=== PATIENT | female | born 1945 | race African-American/Black ===

== ENCOUNTER 2025-07-30 12:42 | Emergency (ER) | payer OTHER, MEDICAID ==
[~2025-07-30] VITALS: Ht 144.8 cm; Wt 54.3 kg
[2025-07-30 12:44] VITALS: BP 128/70; PULSE 16; RESP 16; TEMP 97.5; O2SAT 100
[2025-07-30] MEDS: HYDROcodone-ACET 5/325MG TAB PO ONE (13:48)
--- NOTE | 2025-07-30 13:49 | ED.PDOC ---
Back pain HPI HPI Comments 80-year-old female who presents to the ED with a chief complaint of chronic back pain. Patient states he has been having chronic back pain for the past one year. Patient states the pain is located to the mid to lower back, constant nonradiating rating the pain is rated moderate to severe with no associated exacerbating or relieving factors. Patient denies any recent injury fall or trauma. Patient states she does take Milil[place] and OTC Tylenol but states it has not been helping. Patient otherwise has stable vitals in the ED. Patient denies any other symptoms. Chief Complaint: Back Pain Time Seen by MD: 13:43 Reviewed Notes: Medications, Allergies Allergies: Coded Allergies: NO KNOWN ALLERGIES (Unverified , 07/30/25) Home Meds Active Scripts Acetaminophen (Acetaminophen) 325 Mg Tab, 325 MG PO Q6HP PRN for 10 Days, #40 TAB 0 Refills Prov:ANGIE JONES NP 07/30/25 Methylprednisolone (Medrol Dosepak) 4 Mg Ever, 4 MG PO UD for 7 Days, #21 TAB 0 R efills UAD Prov:ANGIE JONES FIRE EATER 07/30/25 Information Source: Patient, Friend Mode of Arrival: Wheelchair Brought in by: Friend Timing: Months Location of Back pain: (R) Lower back, (L) Lower back, (R) Lumbar, (L) Lumbar Past Medical History PAST MEDICAL HISTORY: Denies Past Medical History (Other): Chronic back pain Surgical History: Denies all surgeries PARKING RAMP ATTENDANT History: Denies all PARKING RAMP ATTENDANT Hx Family History Family History: Reviewed,noncontributory to illness Social History Smoker: Non-Smoker Alcohol: Denies ETOH Use Drugs: Denies Drug Use Lives In: Home Constitutional: denies: chills, diaphoresis, fatigue, fever, malaise, sweats, weakness, others EENTM: denies: blurred vision, double vision, ear bleeding, ear discharge, ear drainage, ear pain, ear ringing, eye pain, eye redness, hearing loss, mouth pain, mouth swelling, nasal discharge, nose bleeding, nose congestion, nose pain, photophobia, tearing, throat pain, throat swelling, voice changes, others Respiratory: denies: cough, hemoptysis, orthopnea, SOB at rest, shortness of breath, SOB with excertion, stridor, wheezing, others Cardiovascular: denies: chest pain, dizzy spells, diaphoresis, Dyspnea on exertion, edema, irregular heart beat, left arm pain, lightheadedness, palpitations, PND, syncope, others Gastrointestinal: denies: abdomen distended, abdominal pain, blood streaked bowels, constipated, diarrhea, dysphagia, difficulty swallowing, hematemesis, melena, nausea, poor appetite, poor fluid intake, rectal bleeding, rectal pain, vomiting, others Genitourinary: denies: abnormal vagina bleeding, burning, dyspareunia, dysuria, flank pain, frequency, hematuria, incontinence, pain, , vagina discharge, urgency, others Neurological: denies: dizziness, fainting, headache, left sided numbness, left sided weakness, numbness, paresthesia, pre-existing deficit, right sided numbness, right sided weakness, seizure, speech problems, tingling, tremors, w eakness, others Musculoskeletal: reports: back pain; denies: gout, joint pain, joint swelling, muscle pain, muscle stiffness, neck pain, others Integumetry: denies: bruises, change in color, change in hair/nails, dryness, laceration, lesions, lumps, rash, wounds, others Allergic/Immunocompromised: denies: Difficulty Healing, Frequent Infections, Hives, Itching, others Hematologic/Lymphatic: denies: anemia, blood clots, easy bleeding, easy bruising, swollen glands, others Endocrine: denies: excessive hunger, excessive sweating, excessive thirst, excessive urination, flushing, intolerance to cold, intolerance to heat, unexplained weight gain, unexplained weight loss, others Psychiatric: denies: anxiety, bipolar disorder, depression, hopeless, panic disorder, schizophrenia, sleepless, suicidal, others All Other Systems: Reviewed and Negative Physical Exam General Appearance: No Apparent Distress, Normal HEENT: Normal ENT Inspection, Pharynx Normal, TMs Normal Neck: Full Range of Motion, Non-Tender, Normal, Normal Inspection Respiratory: Chest Non-Tender, Lungs Clear, No Accessory Muscle Use, No Respiratory Distress, Normal Breath Sounds Cardiovascular: No Edema, No JVD, No Murmur, No Gallop, Normal Peripheral Pulses, Regular Rate/Rhythm Breast Exam: Deferred Gastrointestinal: No Organomegaly, Non Tender, No Pulsatile Mass, Normal Bowel Sounds, Soft Genitalia: Deferred Pelvic: Deferred Rectal: Deferred Extremities: Other (TTP TO LUMBAR SPINE, NO STEP-OFFS NEUROVASCULARLY INTACT) Musculoskeletal : Apperance: Normal Neurologic: Alert, site planner II-XII nml as Tested, No Motor Deficits, Normal Affect, Normal Mood, No Sensory Deficits Cerebellar Function: Normal Reflexes: Normal Skin: Dry, Normal Color, Warm Lymphatic: No Adenopathy Was a procedure done? Was a procedure done?: No Back Pain Differential Dx Differential Diagnosis: DJD, Musculoskeletal Pain Other Differential Diagnosis Chronic back pain, DDD, lumbar radiculopathy, X-Ray, Labs, Meds, VS Vital Signs Date Time Temp Pulse Resp B/P (MAP) Pulse Ox O2 Delivery O2 Flow Rate FiO2 07/30/25 12:44 97.5 16 16 128/70 100 97.5 X-Ray, Labs, Meds, VS Comment Patient arrives alert and oriented, ABC's intact, afebrile, vital signs stable, saturating well in room air Diagnostic imaging ordered by me and results interpreted by radiology : Lumbar spine x-ray Patient was given Mililani 5/325 1 tab p.o.. Tolerated medications with no adverse reaction. I considered cauda equina, spinal cord compression, vertebral malignancy/mets, acute spinal fracture, vertebral osteomyelitis, epidural abscess, infected or obstructed kidney stone, however this is less likely as the patient does not present with lower back pain red flags symptoms such as bowel or bladder dysfunction, saddle anesthesia, paresthesia, and without any history of malignancy or recent back trauma or spinal interventions. Therefore further imaging studies such as a lumbar MRI were not indicated on today's visit. Presentation most consistent with nonemergent musculoskeletal etiology versus nonemergent disc herniation. ED workup: Defer imaging and lab work for outpatient follow up at this time Disposition: Discharge. Strict return precautions discussed with the patient with full understanding. Supportive care advised (rest, ice, heat, NSAIDs, stretching exercises) Massage muscles with cold pack or ice for 20 minutes 4 times per day. Usually most useful if there is swelling during the first 48 hours Heating pad on the most painful area for 20 minutes to relieve muscle spasm Sleep and the most comfortable sleeping position (usually on the side with knees bent) Light stretching, no strenuous activity, avoid frequent bending, avoid carrying heavy objects Discussed possible benefits of yoga and acupuncture Return precautions discussed including Inability to walk/bear weight Paresthesia/weakness/leg pain Fecal/urinary incontinence Any worsening symptoms Additional MDM Review of External, Non-ED records: External records reviewed. Discussion with independent historian (EMS, family) history obtained from the patient/parents (if applicable) at bedside Chronic conditions affecting care: None Social determinants of health affecting care: None Consideration of admission (observation or admission): I considered escalation of care to admission for this patient, however given the reassuring workup, the patient is safe for outpatient management. Discussion with the Radiology: No Tests considered but not performed: Prescription medication considered but not given: 12 lead EKG interpretation: Time of 1ST Reevaluation: 14:15 Reevaluation 1ST: Unchanged Patient Education/Counseling: Diagnosis, Treatment Family Education/Counseling: Diagnosis, Treatment SEPSIS Sepsis Screen Date sepsis recognized/suspect: Jul 30, 2025 Time Sepsis recognized/suspect: 1245 Recent Procedure: No On Antibiotic Therapy: No Respiratory Rate >20: No Heart Rate >90: No Temp<36 C (96.8 F) or >38.3 C: No SBP <90 or MAP <65 mmHG: No New Acute Mental Status Change: No Is the patient on CPAP, BIPAP,: No Physician Orders Lumbar Spine 3 View (07/30/25 13:38) Vital Signs Date Time Temp Pulse Resp B/P (MAP) Pulse Ox O2 Delivery O2 Flow Rate FiO2 07/30/25 12:44 97.5 16 16 128/70 100 97.5 Departure 1 Departure Time of Disposition: 14:28 Impression: Primary Impression: Dorsalgia Disposition: HOME / SELF CARE / HOMELESS Condition: Stable Additional Instructions: Discharge Note: Continue on your medications. Do not drive when taking narcotics. Drink plenty of fluids. Follow up with your primary Dr. Take your prescriptions as ordered. If your condition becomes worse call and follow up with your primary Dr. for instructions or return to the ER if needed. Thank you for visiting [facility]. e-Prescriptions Acetaminophen (Acetaminophen) 325 Mg Tab 325 MG PO Q6HP PRN for 10 Days, #40 TAB 0 Refills Prov: ANGIE JONES FIRE EATER 07/30/25 Methylprednisolone (Medrol Dosepak) 4 Mg Ever 4 MG PO UD for 7 Days, #21 TAB 0 Refills UAD Prov: ANGIE JONES NP 07/30/25 Discharged With: Relative Critical Care Note Critical Care Time?: No Stability Stability form required: No Heart Score Heart Score: Heart Score Response (Comments) Value History N/A 0 EKG N/A 0 Age N/A 0 Risk Factors N/A 0 Troponin N/A 0 Total 0 I personally scribed for ANGIE JONES NP ([email or web address]) on 07/30/25 at 13:49. Electronically submitted by Raza Beverly ([facility] ANGIE JONES NP Jul 30, 2025 13:49
--- NOTE | 2025-07-30 14:21 | DVH ---
INDICATION: Back pain TECHNIQUE: Frontal and lateral views of the lumbar spine were obtained. COMPARISON: XR L-SPINE LIMITED (AP/LAT) on DOS: 10/30/24 FINDINGS: 10 mm anterolisthesis L4-l5. 6mm anterolisthesis of l5 on s1. Multilevel facet arthropathy at L4-L5 through L5-S1. There are no fractures or subluxations. Vertebral body heights and disc spaces are well maintained. Paravertebral soft tissues are unremarkable. IMPRESSION: 1. Of the visualized spine, there is no evidence for fracture or subluxation.
[2025-07-30] MEDS ORDERED: METH4PAK PO (15:38)
[2025-07-30] MEDS ORDERED: ACET-1882 PO (15:38)
== END 2025-07-30 14:28 | disposition home or self-care (01) ==
LOC: ER 12:42
DX: G89.29 Other chronic pain (principal); M54.50 Low back pain, unspecified; Z79.899 Other long term (current) drug therapy
CPT/HCPCS: 72100

== ENCOUNTER 2025-08-25 16:14 | Emergency (ER) | payer OTHER, MEDICAID ==
[~2025-08-25] VITALS: Ht 144.8 cm; Wt 54.5 kg
[~2025-08-25 16:14] MED LIST: ACET-1882 PO; METH4PAK PO
--- NOTE | 2025-08-25 20:06 | ED.PDOC ---
Musculoskeletal HPI Comments 80 y/o F, presents to the ED for CC of lower extremity pain. Patient states, she she has been experiencing left leg pain [id number]. Patient reports, pain to be "shooting" in nature. Patient denies any trauma, injury, or fall. No other symptoms or modifying factors are present at this time. Chief Complaint: Lower Extremity Time Seen by MD: 20:00 Reviewed Notes: Nurses Notes, Medications, Allergies Allergies: Coded Allergies: NO KNOWN ALLERGIES (Unverified , 07/30/25) Home Meds Active Scripts Acetaminophen (Acetaminophen) 325 Mg Tab, 325 MG PO Q6HP PRN for 10 Days, #40 TAB 0 Refills Prov:ANGIE JONES BOSS MINER 07/30/25 Methylprednisolone (Medrol Dosepak) 4 Mg Ever, 4 MG PO UD for 7 Days, #21 TAB 0 Refills UAD Prov:ANGIE JONES BOSS MINER 07/30/25 Information Source: Patient Mode of Arrival: Ambulatory Location: Left Extremity Location: Leg Timing: Weeks Prehospital treatment: None Severity: Moderate Able to Move Extremity: Yes Bear Weight: Limited Pain: Moderate Mechanism: Spontaneous Circumstances: Spontaneous Onset of Symptoms: Spontaneous Symptoms: Pain DVT Risk Factors: NONE Associated signs and symptoms: Thigh pain Past Medical History PAST MEDICAL HISTORY: DM Surgical History: Denies all surgeries MEAL COOKER History: Denies all MEAL COOKER Hx Family History Family History: Reviewed,noncontributory to illness Social History Smoker: Non-Smoker Alcohol: Denies ETOH Use Drugs: Denies Drug Use Lives In: Home Constitutional: denies: chills, diaphoresis, fatigue, fever, malaise, sweats, weakness, others EENTM: denies: blurred vision, double vision, ear bleeding, ear discharge, ear drainage, ear pain, ear ringing, eye pain, eye redness, hearing loss, mouth pain, mouth swelling, nasal discharge, nose bleeding, nose congestion, nose pain, photophobia, tearing, throat pain, throat swelling, voice changes, others Respiratory: denies: cough, hemoptysis, orthopnea, SOB at rest, shortness of breath, SOB with excertion, stridor, wheezing, others Cardiovascular: denies: chest pain, dizzy spells, diaphoresis, Dyspnea on exertion, edema, irregular heart beat, left arm pain, lightheadedness, palpitations, PND, syncope, others Gastrointestinal: denies: abdomen distended, abdominal pain, blood streaked bowels, constipated, diarrhea, dysphagia, difficulty swallowing, hematemesis, melena, nausea, poor appetite, poor fluid intake, rectal bleeding, rectal pain, vomiting, others Genitourinary: denies: abnormal vagina bleeding, burning, dyspareunia, dysuria, flank pain, frequency, hematuria, incontinence, pain, , vagina discharge, urgency, others Neurological: denies: dizziness, fainting, headache, left sided numbness, left sided weakness, numbness, paresthesia, pre-existing deficit, right sided numbness, right sided weakness, seizure, speech problems, tingling, tremors, weakness, others Musculoskeletal: reports: others (left leg pain); denies: back pain, gout, joint pain, joint swelling, muscle pain, muscle stiffness, neck pain Integumetry: denies: bruises, change in color, change in hair/nails, dryness, laceration, lesions, lumps, rash, wounds, others Allergic/Immunocompromised: denies: Difficulty Healing, Frequent Infections, Hives, Itching, others Hematologic/Lymphatic: denies: anemia, blood clots, easy bleeding, easy bruising, swollen glands, others Endocrine: denies: excessive hunger, excessive sweating, excessive thirst, excessive urination, flushing, intolerance to cold, intolerance to heat, unexplained weight gain, unexplained weight loss, others Psychiatric: denies: anxiety, bipolar disorder, depression, hopeless, panic disorder, schizophrenia, sleepless, suicidal, others All Other Systems: Reviewed and Negative Physical Exam General Appearance: No Apparent Distress, Normal HEENT: Normal ENT Inspection, Pharynx Normal Neck: Full Range of Motion, Non-Tender, Normal, Normal Inspection Respiratory: Chest Non-Tender, Lungs Clear, No Accessory Muscle Use, No Respiratory Distress, Normal Breath Sounds Cardiovascular: No Edema, No Murmur, No Gallop, Normal Peripheral Pulses, Regular Rate/Rhythm Breast Exam: Deferred Gastrointestinal: No Organomegaly, Non Tender, No Pulsatile Mass, Normal Bowel Sounds, Soft Genitalia: Deferred Pelvic: Deferred Rectal: Deferred Extremities: No calf tenderness, Normal capillary refill, Normal inspection, Normal range of motion, Non-tender, No pedal edema Musculoskeletal : Location: Left Extremity Location: Thigh Apperance: Normal, Tenderness (left anterior thigh) Neurologic: Alert, sales and marketing assistant II-XII nml as Tested, No Motor Deficits, Normal Affect, Normal Mood, No Sensory Deficits Cerebellar Function: Normal Reflexes: Normal Skin: Dry, Normal Color, Warm Lymphatic: No Adenopathy Was a procedure done? Was a procedure done?: No Differential Diagnosis EXT Differential Diagnosis: Deep Vein Thrombosis, Sprain X-Ray, Labs, Meds, VS Vital Signs Date Time Temp Pulse Resp B/P (MAP) Pulse Ox O2 Delivery O2 Flow Rate FiO2 08/25/25 20:19 98.0 82 18 156/87 (110) 98 98.0 08/25/25 20:19 82 18 98 Room Air 08/25/25 16:17 98.3 81 16 161/91 96 98.3 Current Medications Medications (Trade) Dose Ordered Sig/Tina Route Start Time Stop Time Status Last Admin Ketorolac Tromethamine (Toradol Injection) 30 mg ONCE ONCE IM 08/25/25 20:15 08/25/25 20:16 DC 08/25/25 20:19 [place] [id number] Ph: [phone] DIAGNOSTIC IMAGING Diagnostic Imaging Report : [id number] Signed PATIENT: LISA COURTNEY ACCT: [id number] UNIT: [id number] : 1945 LOC: ER ROOM / BED: / AGE / SEX: 80 / F ADM STATUS: REG ER SERVICE 09 ORDERING PHYSICIAN: MAURICE PUTNAM PROCEDURE(s): LLDVT - LT Lower DVT REASON: pain ORDER NUMBER(s): [id number], ACCESSION NUMBER(s): [id number] LEFT LOWER EXTREMITY VENOUS DUPLEX REASON FOR EXAMINATION: Left lower extremity pain and edema COMPARISON: None TECHNIQUE: Using real-time freeze-frame technique with a high-frequency transducer, multiple longitudinal and transverse sections were obtained. Simultaneous color flow and spectral Doppler imaging was performed. The deep veins from the popliteal fossa to the groin were evaluated. FINDINGS: There is good visualization of the deep venous system with no intraluminal filling defects identified. Normal venous compressibility is seen and there is flow augmentation. Color flow Doppler imaging is unremarkable. IMPRESSION: NO EVIDENCE OF FEMOROPOPLITEAL DEEP VENOUS THROMBOSIS. ATED BY: DRAKE BETANCOURT MD DICTATED DATE/TIME: 08/25/252045 SIGNED BY: DRAKE BETANCOURT MD SIGNED DATE/TIME: 08/25/252045 CC: X-Ray, Labs, Meds, VS Comment Imaging: X-rays and CT scans were reviewed and interpreted by this provider, imaging shows no fractures and no pathological disease. Pending radiology review. Laboratory: Labs reviewed and interpreted by this provider. No significant abnormalities noted. Patient has prior medical visits reviewed. Med reconciliation performed Vital signs reviewed Time of 1ST Reevaluation: 20:30 Reevaluation 1ST: Unchanged Patient Education/Counseling: Diagnosis, Treatment Family Education/Counseling: No Family Present Departure 1 Departure Time of Disposition: 21:08 Impression: Primary Impression: Left thigh pain Disposition: 01 HOME / SELF CARE / HOMELESS Condition: Stable Referrals Follow up in the emergency department in the next 24-48 hours if symptoms worsen. It was advised to follow up with your primary care doctor in the next 3-4 days for further evaluation. e-Prescriptions Baclofen (Baclofen) 10 Mg Tab 10 MG PO TID PRN, #20 TAB Prov: MAURICE PUTNAMP 08/25/25 Discharged With: Self Critical Care Note Critical Care Time?: No Stability Stability form required: No Heart Score Heart Score: Heart Score Response (Comments) Value History N/A 0 EKG N/A 0 Age N/A 0 Risk Factors N/A 0 Troponin N/A 0 Total 0 I personally scribed for MAURICE PUTNAM MARKETING REP ([email or web address]) on 08/25/25 at 20:06. Electronically submitted by Yue Gallego ([email or web address]). I personally scribed for MAURICE PUTNAM MARKETING REP ([email or web address]) on 08/25/25 at 21:00. Electronically submitted by Yue Gallego ([email or web address]). MAURICE PUTNAMP Aug 25, 2025 20:06
[2025-08-25 20:19] VITALS: BP 156/87; PULSE 82; RESP 18; TEMP 98; O2SAT 98
[2025-08-25] MEDS: KETOROLAC TROMETH 30 MG/ML 1ML VIAL IM ONE (20:19)
--- NOTE | 2025-08-25 20:48 | DVH ---
LEFT LOWER EXTREMITY VENOUS DUPLEX REASON FOR EXAMINATION: Left lower extremity pain and edema COMPARISON: None TECHNIQUE: Using real-time freeze-frame technique with a high-frequency transducer, multiple longitudinal and transverse sections were obtained. Simultaneous color flow and spectral Doppler imaging was performed. The deep veins from the popliteal fossa to the groin were evaluated. FINDINGS: There is good visualization of the deep venous system with no intraluminal filling defects identified. Normal venous compressibility is seen and there is flow augmentation. Color flow Doppler imaging is unremarkable. IMPRESSION: NO EVIDENCE OF FEMOROPOPLITEAL DEEP VENOUS THROMBOSIS.
[2025-08-25] MEDS ORDERED: BACL10TA PO (21:09)
== END 2025-08-25 21:14 | disposition home or self-care (01) ==
LOC: ER 16:14
DX: M79.652 Pain in left thigh (principal); E11.9 Type 2 diabetes mellitus without complications; Z79.899 Other long term (current) drug therapy
CPT/HCPCS: 93971; 96372; 99285; J1885